=== PATIENT | female | born 1980 | race Caucasian/White ===

== ENCOUNTER 2023-11-03 21:08 | Inpatient (IN) | payer BC ==
[~2023-11-03] VITALS: Ht 167.6 cm; Wt 110.7 kg
[2023-11-03] MEDS ORDERED: EPHEDRINE SULFATE 50 MG/ML AMPULE IVP PRN (21:30)
[2023-11-03] MEDS ORDERED: LACTATED RINGERS 1000ML 1,000 ML IV PRN (21:30)
[2023-11-03] MEDS ORDERED: ROPIVACAINE 0.2% 2MG/ML 100ML VIAL EP SCH (21:30)
[2023-11-03] MEDS ORDERED: PROMETHAZINE HCL 25 MG/ML 1ML AMPULE IM PRN (21:30)
[2023-11-03] MEDS ORDERED: MEPERIDINE-PF 50 MG/ML SYG IVP PRN (21:30)
[2023-11-03] MEDS ORDERED: NALOXONE HCL 0.4 MG/1 ML ML IV PRN (21:30)
[2023-11-03 22:10] LABS: HEMATOCRIT 32.8 % (36-48); MEAN CORPUSCULAR HEMOGLOBIN 29.6 pg (27.0-33.0); MEAN CORPUSCULAR HGB CONC 32.9 g/dL (32.0-36.0); MEAN CORPUSCULAR VOLUME 89.9 fL (79-99); RED BLOOD CELL COUNT(AUTO) 3.65 MIL/uL (4.00-5.50); RED CELL DISTRIBUTION WIDTH 14.7 % (11.0-15.5); WHITE BLOOD COUNT (AUTO) 9.2 K/uL (4.8-10.8)
[2023-11-03 22:21] LABS: APPEARANCE,URINE CLOUDY (CLEAR); BILIRUBIN,URINE NEGATIVE (NEGATIVE); COLOR,URINE YELLOW (YELLOW); GLUCOSE, URINE (UA) NEGATIVE (NEGATIVE); KETONES,URINE NEGATIVE (NEGATIVE); LEUKOCYTE ESTERASE ,URINE 75 Leu/uL (NEGATIVE); NITRATE,URINE NEGATIVE (NEGATIVE); PH,URINE 6.5 (5.0-8.0); PROTEIN,URINE 100 mg/dL (NEGATIVE); UROBILINOGEN,URINE 0.2 mg/dL (0.2-1.0)
[2023-11-03 22:22] LABS: ADD UA MICROSCOPIC YES
[2023-11-03 22:28] LABS: BACTERIA,URINE RARE /HPF (None Seen); MUCUS,URINE RARE LPF (None Seen); SQUAMOUS EPITHELIAL CELL,UR MANY /HPF (0-2)
[2023-11-03] MEDS ORDERED: PREN-154 PO (22:40)
[2023-11-03] MEDS: LABETALOL 20MG VIAL IV ONE (23:06)
[2023-11-03] MEDS: LABETALOL 20MG VIAL IV PRN (23:13)
[2023-11-03 23:27] LABS: HIV 1&2 ANTIBODY Non-Reactive (Negative); HIV-1 p24 Antigen Non-Reactive (Negative)
[2023-11-03 23:46] LABS: CREATININE 0.6 mg/dL (0.5-1.0); POTASSIUM 3.9 mmol/L (3.5-5.1)
[2023-11-03 23:47] LABS: INR <= 0.93 (0.85-1.15); PROTHROMBIN TIME 9.4 SEC (9.6-11.6)
[2023-11-03 23:49] LABS: PARTIAL THROMBOPLASTIN TIME 25.1 SEC (26.3-35.5)
[2023-11-03 23:50] LABS: ALBUMIN 2.3 g/dL (3.5-5.0); BILIRUBIN,TOTAL 0.2 mg/dL (0.2-1.0); TOTAL PROTEIN, SERUM 6.4 g/dL (6.0-8.3); URIC ACID 3.5 mg/dL (2.6-7.2)
[2023-11-03 23:52] LABS: FIBRINOGEN 448 mg/dL (180-350)
[2023-11-04] MEDS: LABETALOL HCL 100 MG TABLET PO SCH (01:30)
[2023-11-04] MEDS ORDERED: OXYTOCIN-LR 30 UNITS/500ML 500 ML IV SCH (04:00)
[2023-11-04] MEDS: OXYTOCIN-LR 30 UNITS/500ML 500 ML IV SCH (04:12)
[2023-11-04] MEDS: ACETAMINOPHEN 500 MG TABLET PO ONE ×2 (06:06→12:57)
[2023-11-04] MEDS ORDERED: LACTATED RINGERS 1000ML 1,000 ML IV SCH ×2 (08:30→16:30)
[2023-11-04] MEDS ORDERED: CALCIUM GLUC 1GM/10ML VIAL IV PRN (08:30)
[2023-11-04] MEDS: MAGNESIUM 4GM PREMIX 100ML 100 ML IV PRN (08:35)
[2023-11-04] MEDS: MAGNESIUM SULFATE 40GM/1000ML 1,000 ML IV PRN (08:40)
[2023-11-04] MEDS: CEFAZOLIN SODIUM 3 GM VIAL IVPB ONE (14:38)
[2023-11-04] MEDS: CEFAZOLIN SODIUM 2 GM VIAL ONE (14:38)
[2023-11-04] MEDS: CEFAZOLIN SODIUM 1 GM VIAL ONE (14:38)
[2023-11-04] MEDS ORDERED: MORPHINE PF 100MG/10ML AMP IV ONE (14:40)
[2023-11-04 15:11] LABS: RAPID PLASMA REAGIN NONREACTIVE (NONREACTIVE)
[2023-11-04] MEDS ORDERED: EPHEDRINE SULFATE 50 MG/ML AMPULE ONE (15:40)
[2023-11-04] MEDS ORDERED: DEXTROSE 5 %-0.45 % NACL 1,000 ML IV PRN (16:30)
[2023-11-04] MEDS ORDERED: 0.9%NACL 10ML VIAL IVP PRN (16:30)
[2023-11-04] MEDS ORDERED: PROMETHAZINE HCL 25 MG/ML 1ML AMPULE IM PRN (16:30)
[2023-11-04] MEDS ORDERED: MAGNESIUM 4GM PREMIX 100ML 100 ML IV PRN (16:30)
[2023-11-04] MEDS ORDERED: MEPERIDINE-PF 75 MG/ML SYG IM PRN (16:30)
[2023-11-04] MEDS: LABETALOL 20MG VIAL IV PRN (17:52)
[2023-11-04] MEDS: CALDOLOR 800MG+NS 250ML 250 ML IV SCH (18:21)
[2023-11-04] MEDS: LACTATED RINGERS 500 ML 500 ML IV PRN (22:29)
[2023-11-04] MEDS: DiphenhydrAMINE HCL 50 MG/ML VIAL IV ONE (23:04)
[2023-11-05 06:36] LABS: HEMATOCRIT 28.2 % (36-48); MEAN CORPUSCULAR HEMOGLOBIN 29.2 pg (27.0-33.0); MEAN CORPUSCULAR HGB CONC 31.9 g/dL (32.0-36.0); MEAN CORPUSCULAR VOLUME 91.6 fL (79-99); RED BLOOD CELL COUNT(AUTO) 3.08 MIL/uL (4.00-5.50); RED CELL DISTRIBUTION WIDTH 15.3 % (11.0-15.5)
[2023-11-05 06:48] LABS: ALBUMIN 1.8 g/dL (3.5-5.0); BILIRUBIN,TOTAL 0.3 mg/dL (0.2-1.0); CREATININE 0.7 mg/dL (0.5-1.0); POTASSIUM 4.4 mmol/L (3.5-5.1); TOTAL PROTEIN, SERUM 5.2 g/dL (6.0-8.3)
[2023-11-05] MEDS: CEFAZOLIN SODIUM 2 GM VIAL IVPB SCH (07:28)
[2023-11-05] MEDS ORDERED: MEASLES/MUMPS/RUBELLA VACCINE, LIVE 0.5 ML/VIAL SQ SCH (08:00)
[2023-11-05] MEDS: SIMETHICONE 80 MG TAB.CHEW PO PRN (08:03)
[2023-11-05] MEDS: ACETAMINOPHEN 500 MG TABLET PO PRN (08:04)
[2023-11-05] MEDS: LANOLIN 30GM OINTMENT TP PRN (08:04)
[2023-11-05 09:13] LABS: HEPATITIS Bs ANTIGEN SCREEN P Negative (Negative)
[2023-11-05] MEDS: IBUPROFEN 600 MG TABLET PO PRN (14:19)
[2023-11-05] MEDS: ACETAMINOPHEN WITH CODEINE 1 TAB TAB PO PRN (17:02)
[2023-11-05 17:47] VITALS: BP 120/84; PULSE 80; RESP 18
[2023-11-05 19:25] VITALS: BP 126/78; PULSE 77; RESP 18
[2023-11-05] MEDS: DOCUSATE SODIUM 100 MG CAP PO SCH (21:14)
[2023-11-05] MEDS: DIPH,PERTUSS(ACELL),TET VAC/PF 0.5 ML VIAL IM SCH (21:46)
[2023-11-05 23:45] VITALS: BP 126/87; PULSE 83; RESP 18
[2023-11-06 03:05] VITALS: BP 128/87; PULSE 84; RESP 18
[2023-11-06] MEDS: BISACODYL 10 MG SUPP.RECT RC PRN (07:20)
[2023-11-06 07:30] VITALS: BP 152/93; PULSE 91; RESP 18
[2023-11-06] MEDS: HYDROCODONE/ACETAMINOPHEN 5/325 MG TAB PO PRN (09:01)
[2023-11-06 12:00] VITALS: BP 146/88; PULSE 95; RESP 20
[2023-11-06] MEDS: WITCH HAZEL 1 PAD TP PRN (13:55)
[2023-11-06] MEDS ORDERED: ACET-2079 PO (14:47)
[2023-11-06] MEDS ORDERED: LABE100T7 PO (14:47)
== END 2023-11-06 15:55 | disposition home or self-care (01) | DRG 785 ==
LOC: LDH 21:08 → WSH 11-05 17:41
PROVIDERS: ADMIT Obstetrics & Gynecology; ATTEND Obstetrics & Gynecology
PROC: 0UB70ZZ Excision of Bilateral Fallopian Tubes, Open Approach (ICD-10-PCS; 2023-11-04)
PROC: 10D00Z1 Extraction of Products of Conception, Low, Open Approach (ICD-10-PCS; principal; 2023-11-04 14:30)
PROC: 3E0234Z Introduction of Serum, Toxoid and Vaccine into Muscle, Percutaneous Approach (ICD-10-PCS; 2023-11-05)
DX: O14.14 Severe pre-eclampsia complicating childbirth (principal); O24.429 Gestational diabetes mellitus in childbirth, unspecified control; O69.81X0 Labor and delivery complicated by cord around neck, without compression, not applicable or unspecified; O61.9 Failed induction of labor, unspecified; Z3A.39 39 weeks gestation of pregnancy; Z37.0 Single live birth; Z30.2 Encounter for sterilization; Z23 Encounter for immunization
CPT/HCPCS: 36415; 59510; 80053; 81001; 83033; 84550; 85027; 85384; 85610; 85730; 86592; 86701; 86850; 86900; 86901; 87088; 87340; 87390; 90715; A4344; A4606; G0378; J0690; J1200; J1741; J2274; J2791; J3475; J3490; A4248; A4649